=== PATIENT | male | born 1965 | race Caucasian/White ===

== ENCOUNTER 2017-06-02 12:31 | Emergency (ER) | payer OTHER ==
[2017-06-02 12:38] VITALS: TEMP 98.1
--- NOTE | 2017-06-02 13:12 | EDPHY ---
H & P Stated Complaint: Headache/lightheaded off and on all week;BP elevated Time Seen by Provider: 06/02/17 13:12 - Personal History Current Tetanus Diphtheria and Acellular Pertussis (TDAP): Yes - Medical/Surgical History Other PMH: HTN - Social History Smoking Status: Never smoked Constitutional: Initial Vital Signs Temperature (C) 36.7 C 06/02/17 12:33 Heart Rate 92 06/02/17 12:33 Respiratory Rate 18 06/02/17 12:33 Blood Pressure 152/95 H 06/02/17 12:33 O2 Sat (%) 96 06/02/17 12:33 O2 Delivery Mode Room Air Allergies/Adverse Reactions: No Known Allergies Allergy (Unverified 06/02/17 12:38) Home Medications: Medication Instructions Recorded Lisinopril 30 mg PO 06/02/17 Medical Decision Making ED Course/Re-evaluation: CHIEF COMPLAINT: Hypertension, lightheadedness, headaches HISTORY OF PRESENT ILLNESS: The patient is a 51 y/o male arriving with his complaining of an elevated blood pressure with associated intermittent headaches and lightheadedness for the last week. His headache is located frontally and on the left side of his head. He denies any weakness, numbness, reduced coordination, speech difficulties, or cognitive issues. His episodes of lightheadedness feel like he is "on a roller coaster." He also has a heartburn sensation in his chest, which he has had previously, but does not get frequently. He is taking his lisinopril as directed and actually increased his dose to 30mg at the recommendation of his PCP over the last week while he's been traveling internationally. He has not yet obtained good control over his blood pressure. He denies dyspnea, leg pain or swelling, fever. He got a flu vaccination on Monday. No family history or personal history of cardiac disease. REVIEW OF SYSTEMS: A 10 point review of systems was performed and is negative with the exception of the elements mentioned in the history of present illness. PHYSICAL EXAM: HR 105, BP 148/107, O2 Sat, RR. Temp noted General Appearance: Alert, well hydrated, appropriate, and non-toxic appearing. Head: Atraumatic without scalp tenderness or obvious injury Eyes: Pupils equal, round, reactive to light and accommodation, EOMI, no trauma , no injection. Nose: Atraumatic, no rhinorrhea, clear. Throat: There is no erythema or exudates, no lesions, normal tonsils, mucus membranes moist. Neck: Supple, nontender, no lymphadenopathy. Respiratory: No retractions, no distress, no wheezes, and no accessory muscle use. Lungs are clear to auscultation bilaterally. Cardiovascular: Tachycardic regular rate and rhythm, no murmurs, rubs, or gallops. Good capillary refill all extremities. Gastrointestinal: Abdomen is soft, nontender, non-distended, no masses, no rebound, no guarding, no peritoneal signs. Musculoskeletal: Normal active ROM of all extremities, atraumatic. No calf swelling or tenderness. Neurological: Alert, appropriate, and interactive. The patient has non-focal cranial nerves, motor, sensory, and cerebellar exam. Skin: No rashes, good turgor, no nodules on palpation. Past medical history: Hypertension - lisinopril, sometimes HCTZ Past surgical history: noncontributory Family history: no known cardiac disease Social history: at bedside. 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 PCP: [facility]. DIAGNOSTICS/PROCEDURES/CRITICAL CARE TIME: The 12 lead EKG was interpreted by myself. Sinus mechanism rate 88. See hard copy and/or "tracemaster" electronic copy for interpretation. DIFFERENTIAL DIAGNOSIS: The differential diagnosis for the patient's headache included but was not limited to subarachnoid hemorrhage, migraine headache, tension headache and infectious causes such as meningitis, pharyngitis and sinusitis. MEDICAL DECISION MAKING: This is a 51 y/o male with a history of hypertension who presents with a 1-week history of hypertension and associated intermittent headaches and lightheadedness. He is mildly tachycardic, but otherwise has a normal exam. It does not sound like he has achieved good control over his hypertension yet and is in the process of attempting to see his agricultural equipment test engineer regarding this. No evidence of hypertensive emergency or urgency today. Plan for IV, labs, EKG. 500mL IV NS and 30mg IV Toradol administered. Reassessed patient and discussed work up. Labs and EKG are unremarkable. Recommended follow up with his PCP and agricultural equipment test engineer next week. Advised him to begin taking his HCTZ as prescribed in addition to his lisinopril. He agrees with plan for discharge. Return precautions discussed. - Data Points Laboratory Results: Laboratory Results 06/02/17 13:26 06/02/17 13:26 06/02/17 06/02/17 06/02/17 13:26 13:26 13:26 WBC 7.25 10^3/uL 10^3/uL (3.80-9.50) RBC 5.08 10^6/uL 10^6/uL (4.40-6.38) Hgb 16.5 g/dL g/dL (13.7-17.5) Hct 46.9 % % (40.0-51.0) MCV 92.3 fL fL (81.5-99.8) MCH 32.5 pg pg (27.9-34.1) MCHC 35.2 g/dL g/dL (32.4-36.7) RDW 11.7 % % (11.5-15.2) Plt Count 233 10^3/uL 10^3/uL (150-400) MPV 9.9 fL fL (8.7-11.7) Neut % (Auto) 68.4 % % (39.3-74.2) Lymph % (Auto) 21.2 % % (15.0-45.0) [place] % (Auto) 8.6 % % (4.5-13.0) Eos % (Auto) 1.1 % % (0.6-7.6) Baso % (Auto) 0.4 % % (0.3-1.7) Nucleat RBC Rel Count 0.0 % % (0.0-0.2) Absolute Neuts (auto) 4.96 10^3/uL 10^3/uL (1.70-6.50) Absolute Lymphs (auto) 1.54 10^3/uL 10^3/uL (1.00-3.00) Absolute Monos (auto) 0.62 10^3/uL 10^3/uL (0.30-0.80) Absolute Eos (auto) 0.08 10^3/uL 10^3/uL (0.03-0.40) Absolute Basos (auto) 0.03 10^3/uL 10^3/uL (0.02-0.10) Absolute Nucleated RBC 0.00 10^3/uL 10^3/uL (0-0.01) Immature Gran % 0.3 % % (0.0-1.1) Immature Gran # 0.02 10^3/uL 10^3/uL (0.00-0.10) D-Dimer < 0.27 ug/mLFEU ug/mLFEU (0.00-0.50) Sodium 140 mEq/L mEq/L (134-144) Potassium 4.1 mEq/L mEq/L (3.5-5.2) Chloride 102 mEq/L mEq/L (97-110) Carbon Dioxide 24 mEq/l mEq/l (22-31) Anion Gap 14 mEq/L mEq/L (8-16) BUN 17 mg/dL mg/dL (7-23) Creatinine 1.0 mg/dL mg/dL (0.7-1.3) Estimated GFR > 60 Glucose 125 mg/dL H mg/dL (70-100) Calcium 9.3 mg/dL mg/dL (8.5-10.4) Magnesium 2.0 mg/dL mg/dL (1.6-2.3) Total Bilirubin 0.5 mg/dL mg/dL (0.1-1.4) Conjugated Bilirubin 0.1 mg/dL mg/dL (0.0-0.5) Unconjugated Bilirubin 0.4 mg/dL mg/dL (0.0-1.1) AST 22 IU/L IU/L (17-59) ALT 33 IU/L IU/L (21-72) Alkaline Phosphatase 71 IU/L IU/L (38-126) Troponin I < 0.012 ng/mL ng/mL (0.000-0.034) NT-Pro-B Natriuret Pep 19 pg/mL pg/mL (0-125) Total Protein 6.9 g/dL g/dL (6.3-8.2) Albumin 4.3 g/dL g/dL (3.5-5.0) Medications Given: Discontinued Medications Sodium Chloride (Ns) 500 mls @ 0 mls/hr IV EDNOW ONE; Wide Open PRN Reason: Protocol Stop: 06/02/17 13:29 Last Admin: 06/02/17 13:30 Dose: 500 mls Ketorolac Tromethamine (Toradol) 30 mg IVP EDNOW ONE Stop: 06/02/17 13:49 Last Admin: 06/02/17 14:10 Dose: 30 mg Departure - Departure Disposition: Home, Routine, Self-Care Clinical Impression: Hypertension Qualifiers: Hypertension type: essential hypertension Qualified Code(s): I10 - Essential ( primary) hypertension Condition: Good Instructions: Hypertension (ED) Additional Instructions: 1. Take your lisinopril as prescribed. 20mg daily. 2. Begin taking your hydrochlorothiazide as prescribed. 12.5mg every morning. 3. Keep a blood pressure chart over the next week. Record 2 readings per day and bring it to your follow up visit. 4. Follow up with your agricultural equipment test engineer and primary care provider next week. 5. Return to the ED for worsening of condition. Referrals: Alberto Rodriguez MD [Medical Doctor] - As per Instructions Report Scribed for: Ric Cardenas Report Scribed by: Rita Henley Date of Report: 06/02/17 Time of Report: 14:50
[2017-06-02] MEDS ORDERED: NS 500 ML IV ONE (13:28)
--- NOTE | 2017-06-02 13:33 | CPEKG ---
Heart Rate: 88 RR Interval: 682 P-R Interval: 128 QRSD Interval: 90 QT Interval: 360 QTC Interval: 436 P [place]: 45 QRS [place]: 17 T Wave [place]: 27 EKG Severity - NORMAL ECG - EKG Impression: SINUS RHYTHM Electronically Signed By: Ric Cardenas 03-Jun-2017 21:55:13
[2017-06-02 13:43] LABS: % IMMATURE GRANULYOCYTES 0.3 % (0.0-1.1); ABSOLUTE IMMATURE GRANULOCYTES 0.02 10^3/uL (0.00-0.10); ADD DIFF? NO; ADD MORPH? NO; ADD SCAN? NO; ATYPICAL LYMPHOCYTE FLAG 0 (0-99); FRAGMENT RBC FLAG 0 (0-99); HEMATOCRIT 46.9 % (40.0-51.0); HEMOGLOBIN 16.5 g/dL (13.7-17.5); LEFT SHIFT FLG 0 (0-99); LIPEMIA HEMOLYSIS FLAG 90 (0-99); MEAN CELL HEMOGLOBIN 32.5 pg (27.9-34.1); MEAN CELL HEMOGLOBIN CONCENTR. 35.2 g/dL (32.4-36.7); MEAN CELL VOLUME 92.3 fL (81.5-99.8); MEAN PLATELET VOLUME 9.9 fL (8.7-11.7); PLATELET CLUMPS FLAG 0 (0-99); PLATELET COUNT 233 10^3/uL (150-400); RED BLOOD CELL COUNT 5.08 10^6/uL (4.40-6.38); RED CELL DISTRIBUTION WIDTH 11.7 % (11.5-15.2)
[2017-06-02] MEDS ORDERED: KETOROLAC 30 MG/1 ML SDV IVP ONE (13:48)
[2017-06-02 14:04] LABS: ALANINE AMINOTRANSFERASE 33 IU/L (21-72); ALBUMIN 4.3 g/dL (3.5-5.0); ALKALINE PHOSPHATASE 71 IU/L (38-126); ANION GAP 14 mEq/L (8-16); ASPARTATE AMINOTRANSFERASE 22 IU/L (17-59); BILIRUBIN,TOTAL 0.5 mg/dL (0.1-1.4); BILIRUBIN-CONJUGATED 0.1 mg/dL (0.0-0.5); BILIRUBIN-UNCONJUGATED 0.4 mg/dL (0.0-1.1); CALCIUM 9.3 mg/dL (8.5-10.4); CARBON DIOXIDE 24 mEq/l (22-31); CHLORIDE 102 mEq/L (97-110); GLOMERULAR FILTRATION RATE > 60; GLUCOSE 125 mg/dL (70-100); POTASSIUM 4.1 mEq/L (3.5-5.2); SODIUM 140 mEq/L (134-144); TOTAL PROTEIN 6.9 g/dL (6.3-8.2)
[2017-06-02 14:15] LABS: TROPONIN I < 0.012 ng/mL (0.000-0.034)
[2017-06-02 15:10] VITALS: BP 141/88; PULSE 79; RESP 18; O2SAT 94
== END 2017-06-02 15:10 | disposition home or self-care (01) ==
DX: I10 Essential (primary) hypertension (principal)
CPT/HCPCS: 96374; J1885